=== PATIENT | male | born 1995 | race Native Hawaiian/Other Pacific Islander ===

== ENCOUNTER 2018-02-08 12:06 | Outpatient (CLI) | payer OTHER ==
[2018-02-08 12:29] LABS: PLATELET COUNT 190 K/uL (142-355)
[2018-02-08 12:52] LABS: POTASSIUM 3.8 mmol/L (3.6-5.2)
== END 2018-02-08 23:32 | disposition home or self-care (01) ==
LOC: LABW 12:06
PROVIDERS: Internal Medicine
DX: R10.13 Epigastric pain (principal)
CPT/HCPCS: 36415; 80053; 81000; 82150; 83690; 85027